=== PATIENT | female | born 1960 | race Caucasian/White ===

== ENCOUNTER → 2016-10-28 | Outpatient (CLI) | payer MEDICARE ==
--- NOTE | 2016-10-28 14:57 | KCIC ---
INDICATION: Back pain. Fall a week ago. Lump in the left lower back. TECHNIQUE: Lumbosacral spine series with oblique views contains 5 images. No comparison is available. FINDINGS: There is negligible retrolisthesis at L5-S1. There is no fracture. Vertebral body height is maintained. There is narrowing of the interspace at L5-S1. There is endplate spurring at L5-S1. There is facet hypertrophy at L4-L5 and L5-S1. IMPRESSION: Mild degenerative changes in the lumbar spine. No evidence of an acute fracture or traumatic malalignment. Electronically signed by: Michael Connell MD (10/28/2016 2:54 PM) [id number]
== END | disposition home or self-care (01) ==
LOC: KCIC 13:49
PROVIDERS: ATTEND Nurse Practitioner Family
DX: M47.896 Other spondylosis, lumbar region (principal); M48.8X6 Other specified spondylopathies, lumbar region
CPT/HCPCS: 72110

== ENCOUNTER → 2018-04-06 | Outpatient (CLI) | payer MEDICARE ==
--- NOTE | 2018-04-06 14:18 | KCIC ---
Bilateral digital screening mammograms: Reason for examination: Routine screening. Comparison is made to previous studies dated 01/03/2013 and 12/09/2010. Interpretation was made with the benefit of CAD. The skin and nipples show no abnormalities. No abnormal axillary lymph nodes are seen. The breast parenchyma is heterogeneously dense. (Breast density: Category C.) There has been interval decrease in size with small nodule at the 12:00 B position of the right breast. There is no change in the size of the small nodule at the 1:00 B position of the right breast. There is however a new nodule in the 10:00 B position which is fairly well-circumscribed and measures 2.7 cm in greatest dimension. This may represent a cyst. There are also small nodules present in the left breast on cc view centrally and laterally. These also may represent cysts. Recommend further evaluation with ultrasound. There are no other new dominant masses, suspicious calcifications or architectural distortion. Some scattered benign appearing calcifications are seen. Impression: New nodular densities bilaterally which are fairly well-circumscribed and may represent cysts but recommend further evaluation with ultrasound. Your patient's mammogram demonstrates that she has dense breast tissue (breast density category C or D), which could hide abnormalities, and if she has other risk factors for breast cancer that have been identified, she might benefit from supplemental screening tests that may be suggested by you as her ordering physician. Dense breast tissue, in and of itself, is a relatively common condition. Therefore, this information is not provided to cause undue concern, but rather to raise your awareness and to promote discussion with your patient regarding the presence of other risk factors, in addition to dense breast tissue. Your patient's mammography results will be sent to her. BI-RAD Category 0: Incomplete. Needs additional imaging evaluation. "Our facility is accredited by the [employer] Mammography Program." This patient's information has been entered into a reminder system for the patient to be notified with the results of her examination and a target date for the next mammogram. Electronically signed by: Silva Sol MD (04/06/2018 2:14 PM) [id number]
--- NOTE | 2018-04-06 16:33 | KCIC ---
Pelvic and transvaginal ultrasound History: Pelvic pressure Comparison: None FINDINGS: Multiple transabdominal sonographic images of the pelvis are submitted. Pelvic structures are not well visualized. Transvaginal ultrasound: Multiple transvaginal sonographic images of the pelvis are submitted. Uterus measured 5.2 x 3.1 x 4.5 cm. Endometrium is considered slightly thickened about 0.6 cm for a postmenopausal patient, somewhat heterogeneous appearance of the endometrium. There is minimal fluid in the endometrial cavity. Right ovary measured 1.4 x 1 x 1.5 cm. Left ovary measured 1.3 x 0.9 x 1 cm. There is normal low resistance vascularity of the bilateral ovaries. No free fluid is demonstrated. Impression: 1. Endometrial thickness is considered slightly thickened for a postmenopausal patient, minimal fluid in the endometrial cavity. Mild hyperplasia is a possibility. Neoplasm is not excludable although considered less likely. There is no abnormality demonstrated of either ovary. Electronically signed by: Foster Lopez MD (04/06/2018 4:28 PM) [id number]
== END | disposition home or self-care (01) ==
LOC: KCIC MAMMO 13:27
PROVIDERS: ATTEND Nurse Practitioner Family
DX: Z12.31 Encounter for screening mammogram for malignant neoplasm of breast (principal); N94.89 Other specified conditions associated with female genital organs and menstrual cycle; Z78.0 Asymptomatic menopausal state
CPT/HCPCS: 76830; 76856; 77067

== ENCOUNTER → 2018-04-27 | Outpatient (CLI) | payer MEDICARE ==
--- NOTE | 2018-04-27 14:34 | KCIC ---
Bilateral breast ultrasound: Reason for examination: Bilateral breast nodules. Comparison is made to mammographic exam dated 04/06/2018. Bilateral whole breast ultrasound including evaluation of all 4 quadrants and the retroareolar and axillary regions of both breasts was performed. The right breast ultrasound showed a 1 cm lesion consistent with a cystic lesion in the 12:30 position 2 cm from the nipple corresponding to the nodule seen at 12:00 B position mammographically. There is a 5.2 mm lesion consistent with a cyst in the 10:00 position 3 cm from the nipple. There is a small 5.1 mm cyst in this 9:30 position 5 cm from the nipple. In the 9:00 position 9 cm from the nipple and corresponding to the area of clinical concern and larger mammographic lesion, there is a simple cyst measuring 2.4 cm in size. No solid suspicious-appearing lesions are seen. No abnormal appearing lymph nodes are seen in the right axilla. The left breast shows a small hypoechoic lesion measuring 7.8 mm in size probably representing a complicated cyst in the 3:00 position 6 cm from the nipple. There is a lipoma measuring 1.7 cm in greatest dimension in the 4:00 position 10 cm from the nipple just beneath the skin surface. There is a 4.3 mm fibrocystic type lesion in the 6:00 position 3 cm from the nipple which has benign appearance. There is some ductal ectasia in the retroareolar 6:00 position. No suspicious nodules are seen. No abnormal appearing lymph nodes are seen in the axilla. IMPRESSION: Benign-appearing cystic lesions in the right breast with the largest cyst at the 9:00 position measuring 2.4 cm in greatest dimension. Small cystic and fibrocystic type nodules in the left breast measuring up to 7.8 mm in size. Recommend 6 month sonographic follow-up. Hyperechoic lesion consistent with a lipoma in the left breast at the 4:00 position. BI-RADS Category 3: Probably Benign. "Our facility is accredited by the [employer] Mammography Program." This patient's information has been entered into a reminder system for the patient to be notified with the results of her examination and a target date for the next mammogram. Electronically signed by: Silva Sol MD (04/27/2018 2:29 PM) [id number]
--- NOTE | 2018-04-27 14:52 | KCIC ---
EXAM: Abdomen sonogram. HISTORY: Pain. TECHNIQUE: Sonographic imaging of the abdomen was performed. COMPARISON: None. FINDINGS: The liver is normal in size. There is hepatic steatosis. No focal hepatic lesion is seen. The gallbladder, kidneys and spleen are unremarkable. The common bile duct is normal in caliber. The aorta is normal in caliber. There is aortic atherosclerosis. The pancreas is partially obscured due to bowel gas. IMPRESSION: 1. Hepatic steatosis. 2. Aortic atherosclerosis. Electronically signed by: Cha Killian MD (04/27/2018 2:48 PM) [place] [id number]
== END ==
LOC: KCIC US 12:53
PROVIDERS: ATTEND Nurse Practitioner Family
DX: N60.01 Solitary cyst of right breast (principal); N63.21 Unspecified lump in the left breast, upper outer quadrant; K76.0 Fatty (change of) liver, not elsewhere classified; I70.0 Atherosclerosis of aorta
CPT/HCPCS: 76641; 76700

== ENCOUNTER → 2020-05-05 | Outpatient (CLI) | payer MEDICARE ==
--- NOTE | 2020-05-05 14:51 | KCIC ---
EXAM: Bilateral screening mammogram. HISTORY: 59-year-old female presents for screening mammography. TECHNIQUE: Full-field digital craniocaudal and mediolateral oblique views of both breasts are obtaine d for evaluation. Computer aided detection was applied. COMPARISON: Sonogram dated 11/23/2018 and mammogram dated 04/06/2018. BREAST PARENCHYMAL DENSITY: Level C - Heterogeneously dense. FINDINGS: There is no new suspicious mass, microcalcification or region of architectural distortion. There is stable areas of nodularity and asymmetry within both breasts. There are multiple benign calc ifications. IMPRESSION: BI-RADS Category 2: Benign finding(s). RECOMMENDATION: Annual mammography is recommended. If your mammogram demonstrates that you have dense breast tissue, which could hide abnormalities, and if you have other risk factors for breast cancer that have been identified, you might benefit from s upplemental screening tests that may be suggested by your ordering physician. Dense breast tissue, i n and of itself, is a relatively common condition. This information is not provided to cause undue c oncern, but rather to raise your awareness and to promote discussion with your physician regarding th e presence of other risk factors, in addition to dense breast tissue. A report of your mammography re sults will be sent to you and your physician. You should contact your physician if you have any ques tions or concerns regarding this report. Mammography is a sensitive method for finding small breast cancers, but it does not detect them all a nd is not a substitute for careful clinical examination. A negative mammogram does not negate a clin ically suspicious finding and should not result in delay in biopsying a clinically suspicious abnorma lity. PQRS compliance statement - Patient information was entered into a reminder system with a target due date for the next mammogram. "Our facility is accredited by the [employer] Mammography Program." Electronically signed by: Cha Killian MD (05/05/2020 2:49 PM) [email or web address]
== END ==
LOC: KCIC 14:00
PROVIDERS: ATTEND Nurse Practitioner Family
DX: Z12.31 Encounter for screening mammogram for malignant neoplasm of breast (principal)
CPT/HCPCS: 77067